=== PATIENT | female | born 1975 | race Caucasian/White ===

== ENCOUNTER 2016-11-23 14:16 | Emergency (ER) | payer MEDICAID ==
[2016-11-23 14:34] VITALS: RESP 16; TEMP 98.6; O2SAT 95
--- NOTE | 2016-11-23 16:34 | EDPHY ---
HPI/HX/ROS/PE/MDM Narrative: Chief complaint: Foreign body right index finger HPI: 41-year-old female states that she broke a hypodermic needle off in her right index finger this afternoon. She states she was using a needle to inject heroin. It was a new needle. She states she is able to feel at under the skin. Denies any other complaints. ROS: 10 point Review of Systems is negative except as noted in the HPI. Physical exam: General: Awake, alert, no acute distress Right hand: There is a puncture wound over the radial aspect of the middle phalanx of her right index finger. There is no active bleeding. She has no decreased range of motion of the proximal or distal IP joints. ED Course: Right index finger x-ray: There is a metallic foreign body noted. Procedure note: Soft tissue foreign body removal Indication: A metallic foreign body in the right index finger. Digit was blocked with a digital nerve block, 2 mL of 0.5% bupivacaine was infiltrated in the base of her right index finger after sterile prep. The finger was then prepped with chlorhexidine. A 3 mm longitudinal incision was made over the puncture wound. Then using splinter forceps the foreign body was palpated. Under fluoroscopic guidance the metallic foreign body was removed. The digit was cleaned and dressed. There were no complications. General Time Seen by Provider: 11/23/16 15:16 Initial Vital Signs: Initial Vital Signs Temperature (C) 37 C 11/23/16 14:32 Heart Rate 95 11/23/16 14:32 Respiratory Rate 16 11/23/16 14:32 Blood Pressure 126/77 H 11/23/16 14:32 O2 Sat (%) 95 11/23/16 14:32 O2 Delivery Mode Room Air Allergies/Adverse Reactions: No Known Allergies Allergy (Unverified 11/23/16 14:35) Home Medications: Medication Instructions Recorded Neurontin 11/23/16 Seroquel 11/23/16 Wellbutrin 11/23/16 Departure - Departure Disposition: Home, Routine, Self-Care Clinical Impression: Soft tissues foreign body Condition: Good Instructions: Soft Tissue Foreign Body (ED) Additional Instructions: Keep the area clean and dry. Follow up with primary care doctor in 3-4 days for re-evaluation. Return to the emergency department for increasing redness, swelling, purulent drainage from the wound, fevers, chills, or any other concerns.
[2016-11-23 16:59] VITALS: BP 105/65; PULSE 72
--- NOTE | 2016-11-23 17:02 | DX ---
IndexFinger Minimum 2 Views Right History: needle broke off mid phalynx R index finger. Findings: There is a linear metallic object extending into the dorsal aspect of the middle phalanx, without fracture. Study otherwise normal. Impression: Linear metallic foreign object extending to the middle phalanx of the right index finger.
== END 2016-11-23 16:58 | disposition home or self-care (01) ==
PROC: 0JCJ0ZZ Extirpation of Matter from Right Hand Subcutaneous Tissue and Fascia, Open Approach (ICD-10-PCS; principal; 2016-11-23)
DX: S61.240A Puncture wound with foreign body of right index finger without damage to nail, initial encounter (principal); W46.0XXA Contact with hypodermic needle, initial encounter